=== PATIENT | female | born 1990 ===

== ENCOUNTER 2016-12-01 21:50 | Emergency (ER) | payer BC ==
[2016-12-01 22:11] VITALS: TEMP 98.3; BMI 25.1
--- NOTE | 2016-12-02 00:21 | ED PDOC ---
Arrival/HPI - General Chief Complaint: Eye Problem Time Seen by Provider: 12/01/16 22:16 Historian: Mcfp - History of Present Illness Narrative History of Present Illness (Text): 12/02/16 00:22 25-year-old female presents the ER complaining of redness and irritation to both eyes after she accidentally sprayed her eyes with a bottle of sandblaster glass. Patient reports no foreign body sensation, discharge, or pain. Otherwise: (-) visual changes, (-) other injury, (-) contact lens. Past Medical History - Provider Review Nursing Documentation Reviewed: Yes - Infectious Disease Hx of Infectious Diseases: None - Psychiatric Hx Substance Use: No - Anesthesia Hx Anesthesia: Yes Hx Anesthesia Reactions: No Family/Social History - Physician Review Nursing Documentation Reviewed: Yes Family/Social History: No Known Family HX Smoking Status: Never Smoked Hx Alcohol Use: Yes Frequency of alcohol use: Socially Hx Substance Use: No Allergies/Home Meds Allergies/Adverse Reactions: Allergies No Known Allergies Allergy (Verified 12/01/16 22:13) Home Medications: Home Meds Medication Instructions Recorded Confirmed No Known Home Med 12/01/16 12/01/16 Physical Exam - Physical Exam Narrative Physical Exam (Text): 12/02/16 00:21 GENERAL APPEARANCE: Patient is awake, alert, oriented x 3, in no acute distress. HEENT: (-) facial swelling and erythema, (-) facial blisters. VISUAL ACUITIES: see RN's note LIDS & LASHES: Normal. PUPILS: Pupils equal and reactive. EOM's: Intact. LID EVERSION: (-) foreign body. CONJUNCTIVAE: Moderately injected CORNEA: (-) infiltrate. ANTERIOR CHAMBER: (-) foreign body, (-) tear in iris, (-) hyphema. FUNDUSCOPIC: (-) foreign body, (-) hemorrhage. FLUORESCEIN: (-) uptake (-) Pollo test Vital Signs Temp Pulse Resp BP Pulse Ox 12/02/16 01:02 80 17 121/76 99 12/01/16 23:15 78 17 125/70 100 12/01/16 22:10 98.3 F 88 19 124/75 99 Medical Decision Making ED Course and Treatment: 12/02/16 00:20 25-year-old female presents the ER complaining of redness and irritation to both eyes after she accidentally sprayed her eyes with a bottle of sandblaster glass. Both eyes were copiously irrigated and the eyewash. Ph of the eye was 8. Usama lens inserted to b/l eyes and irrigated with 1 L of NS. On reevaluation patient reports significant improvement of pain and discomfort in both of her eyes. She denies any visual changes, has no other complaints. Patient advised to follow-up with ophthalmology referral provided. Patient states she fully agrees with and understands discharge instructions. States that she agrees with the plan and disposition. Verbalized and repeated discharge instructions and plan. I have given the patient opportunity to ask any additional questions. Follow up with ophthalmology referral provided in 1-2 days without fail. Return to the emergency room at any time for any new or worsening symptoms. - PA / QUALIFICATION ENGINEER / Resident Statement MD/DO has reviewed & agrees with the documentation as recorded. Disposition/Present on Arrival - Present on Arrival Any Indicators Present on Arrival: No History of DVT/PE: No History of Uncontrolled Diabetes: No Urinary Catheter: No History of Decub. Ulcer: No History Surgical Site Infection Following: None - Disposition Have Diagnosis and Disposition been Completed?: Yes Diagnosis: Chemical conjunctivitis of both eyes Disposition Time: 00:19 Patient Plan: Discharge Patient Problems: Current Active Problems Problem Status Onset Chemical conjunctivitis of both eyes Acute Condition: STABLE Discharge Instructions (ExitCare): Conjunctivitis (ED) Print Language: AZERI Additional Instructions: Thank you for letting us take care of you today. You were treated for chemical conjunctivitis. The emergency medical care you received today was directed at your acute symptoms. If you were prescribed any medication, please fill it and take as directed. It may take several days for your symptoms to resolve. Return to the Emergency Department if your symptoms worsen, do not improve, or if you have any other problems. Please contact your doctor in 2 days for re-evaluation and follow up / or call one of the physicians/clinics you have been referred to that are listed on the Patient Visit Information form that is included in your discharge packet. Bring any paperwork you were given at discharge with you along with any medications you are taking to your follow up visit. Our treatment cannot replace ongoing medical care by a primary care provider (PCP) outside of the emergency department. Thank you for allowing the [facility] team to be part of your care today. Referrals: PCP,NO [Primary Care Provider] - Follow up with primary Moises Menendez MD [Staff Provider] - Follow up with primary
[2016-12-02 02:25] VITALS: BP 120/76; PULSE 72; RESP 16; O2SAT 100
== END 2016-12-02 02:26 | disposition home or self-care (01) ==
LOC: ED 21:50
DX: T65.891A Toxic effect of other specified substances, accidental (unintentional), initial encounter (principal); H10.213 Acute toxic conjunctivitis, bilateral; Y92.89 Other specified places as the place of occurrence of the external cause